=== PATIENT | male | born 1995 | race American Indian/Alaskan Native ===

== ENCOUNTER 2020-09-20 16:37 | Emergency (ER) | payer SELFPAY ==
[2020-09-20 17:07] VITALS: BP 122/79
[2020-09-20 18:33] LABS: Bilirubin,Urine NEG (Negative); Blood,Urine NEG (Negative); Color,Urine Yellow (Yellow); Protein,Urine <15 mg/dL mg/dL (Negative); Urobilinogen,Urine < 2.0 mg/dL (<2.0); WBC,Urine < 1.0 /HPF (0.0-6.0)
--- NOTE | 2020-09-20 18:39 | Emergency Department Report ---
ED Male HPI - General Chief complaint: Urogenital-Male Stated complaint: RT TESTICLE PAIN Time Seen by Provider: 09/20/20 17:43 Source: patient Mode of arrival: Ambulatory Limitations: No Limitations - History of Present Illness Initial comments: pt is a 25 yo male who presents to the ED with c/o right sided testicular pain that began two months ago but worsened in the last few days. he states that the pain is intermittent and worse with palpation. he denies any edema, fever, n/v/d, penile discharge, dysuria, urinary symptoms, abd pain, back pain, hematuria, urinary retention. no pmhx. no allergies to meds. he states he presents today to make sure he "does not have cancer." he states he is sexually active without protection, he states he only has one partner, he states his partner is not having any symptoms, he reports his partner "didnt have anything when she went for a checkup." - Related Data Previous Rx's Medication Instructions Recorded Last Taken Type Doxycycline Hyclate [Doxycycline 100 mg PO BID 7 Days #14 tab 09/20/20 Unknown Rx Hyclate TAB] Allergies Allergy/AdvReac Type Severity Reaction Status Date / Time No Known Allergies Allergy Unverified 09/20/20 17:04 ED Review of Systems ROS: Stated complaint: RT TESTICLE PAIN Other details as noted in HPI Comment: All other systems reviewed and negative ED Past Medical Hx - Past Medical History Previous Medical History?: No - Surgical History Past Surgical History?: No - Social History Smoking Status: Never Smoker Substance Use Type: Marijuana - Medications Home Medications: Home Medications Medication Instructions Recorded Confirmed Last Taken Type Doxycycline Hyclate [Doxycycline 100 mg PO BID 7 Days #14 tab 09/20/20 Unknown Rx Hyclate TAB] ED Physical Exam - General Limitations: No Limitations General appearance: alert, in no apparent distress - Head Head exam: Present: atraumatic, normocephalic - Eye Eye exam: Present: normal appearance - ENT ENT exam: Present: mucous membranes moist - Respiratory Respiratory exam: Present: normal lung sounds bilaterally. Absent: respiratory distress, wheezes, rales, rhonchi, stridor, chest wall tenderness, decreased breath sounds, prolonged expiratory - Cardiovascular Cardiovascular Exam: Present: regular rate, normal rhythm, normal heart sounds. Absent: systolic murmur, diastolic murmur, rubs, gallop - GI/Abdominal GI/Abdominal exam: Present: soft, normal bowel sounds. Absent: distended, tenderness, guarding, rebound, rigid - exam: Present: other (volcanology teacher: georgette, tech, there is ttp to the right testicle and right epididmyal region, no edema, no skin changes, no scrotal edema, no lesions, no palpable masses or hernias, normal testicular lie, normal cremasteric reflex) - Neurological Exam Neurological exam: Present: alert, oriented X3 - Psychiatric Psychiatric exam: Present: normal affect, normal mood - Skin Skin exam: Present: warm, dry, intact ED Course Vital Signs 09/20/20 17:04 Temperature 98.2 F Pulse Rate 65 Respiratory 20 Rate Blood Pressure 122/79 O2 Sat by Pulse 100 Oximetry ED Medical Decision Making - Lab Data Lab Results 09/20/20 Range/Units 18:15 Urine Color Yellow (Yellow) Urine Turbidity Clear (Clear) Urine pH 6.0 (5.0-7.0) Ur Specific [place] 1.019 (1.003-1.030) Urine Protein <15 mg/dl (Negative) mg/dL Urine Glucose (UA) Neg (Negative) mg/dL Urine Ketones Neg (Negative) mg/dL Urine Blood Neg (Negative) Urine Nitrite Neg (Negative) Urine Bilirubin Neg (Negative) Urine Urobilinogen < 2.0 (<2.0) mg/dL Ur Leukocyte Esterase Neg (Negative) Urine WBC (Auto) < 1.0 (0.0-6.0) /HPF Urine RBC (Auto) 1.0 (0.0-6.0) /HPF - Radiology Data Radiology results: report reviewed Ordering Physician: PATRICIA KIM Date of Service: 09/20/20 Procedure(s): US testicular doppler comp Accession Number(s): [id number] cc: PATRICIA KIM EXAMINATION: Testicular/scrotal ultrasound with Doppler, 09/20/2020 CLINICAL INFORMATION: Right-sided testicular pain COMPARISON: None. FINDINGS: Both testicles are normal in size and echogenicity. The right testicle measures 3.0 x 2.1 x 4.2 cm. The left testicle measures 3.7 x 2.0 x 3.2 cm. There may be a trace amount of fluid surrounding the right testicle. Symmetric Doppler flow is demonstrated to both testicles. IMPRESSION: 1. Possible trace amount of free fluid surrounding the right testicle. This is a nonspecific finding but could suggest inflammatory process in this patient with right-sided testicular pain. Signer Name: Sabina Thomas MD Signed: 09/20/2020 7:42 PM Workstation Name: [id number] Transcribed By: OLENA Dictated By: Sabina Thomas MD Electronically Authenticated By: Sabina Thomas MD Signed Date/Time: 09/20/201941 DD/ 38 TD/TT: - Medical Decision Making pt is a 25 yo male who presents to the ED with c/o right sided testicular pain that began two months ago but worsened in the last few days. he states that the pain is intermittent and worse with palpation. he denies any edema, fever, n/v/d, penile discharge, dysuria, urinary symptoms, abd pain, back pain, hematuria, urinary retention. no pmhx. no allergies to meds. he states he presents today to make sure he "does not have cancer." he states he is sexually active without protection, he states he only has one partner, he states his partner is not having any symptoms, he reports his partner "didnt have anything when she went for a checkup." on exam: volcanology teacher: germaine palomino, there is ttp to the right testicle and right epididmyal region, no edema, no skin changes, no scrotal edema, no lesions, no palpable masses or hernias, normal testicular lie, normal cremasteric reflex. UA is WNL. testicular US: 1. Possible trace amount of free fluid surrounding the right testicle. This is a nonspecific finding but could suggest inflammatory process in this patient with right-sided testicular pain. Discussed findings with patient, given that he is a young male and is sexually active without protection, inflammatory process could be potentially secondary to a STD, advised patient that he would need IM antibiotic and to complete a course of p.o. antibiotics, he agreed with plan, advised patient that he will need to have a outpatient full STD panel, he agrees. advised pt Please take medication as prescribed to completion. Follow-up with a primary care doctor or clinic or health department. You need to have a full STD panel. Please have any partner tested and treated as well. Avoid sexual intercourse. Return to emergency room for any new or worsening symptoms. Critical care attestation.: If time is entered above; I have spent that time in minutes in the direct care of this critically ill patient, excluding procedure time. ED Disposition Clinical Impression: Right testicular pain Disposition: DC-01 TO HOME OR SELFCARE Is pt being admited?: No Does the pt Need Aspirin: No Condition: Stable Instructions: Testicular Self-Exam, Safe Sex Additional Instructions: Please take medication as prescribed to completion. Follow-up with a primary care doctor or clinic or health department. You need to have a full STD panel. Please have any partner tested and treated as well. Avoid sexual intercourse. Return to emergency room for any new or worsening symptoms. Prescriptions: Doxycycline Hyclate [Doxycycline Hyclate TAB] 100 mg PO BID 7 Days #14 tab Referrals: PRIMARY CARE, [Primary Care Provider] - 3-5 Days [facility] [Provider Group] - 3-5 Days [facility] [Outside] - 3-5 Days Time of Disposition: 19:49 Print Language: DIVEHI
--- NOTE | 2020-09-20 19:47 | Ultrasound Report ---
EXAMINATION: Testicular/scrotal ultrasound with Doppler, 09/20/2020 CLINICAL INFORMATION: Right-sided testicular pain COMPARISON: None. FINDINGS: Both testicles are normal in size and echogenicity. The right testicle measures 3.0 x 2.1 x 4.2 cm. T he left testicle measures 3.7 x 2.0 x 3.2 cm. There may be a trace amount of fluid surrounding the right testicle. Symmetric Doppler flow is demonstrated to both testicles. IMPRESSION: 1. Possible trace amount of free fluid surrounding the right testicle. This is a nonspecific finding but could suggest inflammatory process in this patient with right-sided testicular pain. Signer Name: Sabina Thomas MD Signed: 09/20/2020 7:42 PM Workstation Name: [email or web address]
[2020-09-20] MEDS ORDERED: LIDOCAINE-MPF (1%) 10 MG/1 ML VIAL 5 ML INFILTRATI ONE (19:48)
[2020-09-21] MEDS ORDERED: LIDOCAINE-MPF (1%) 10 MG/1 ML VIAL 5 ML ONE (10:22)
== END 2020-09-20 19:00 | disposition home or self-care (01) ==
LOC: ED 16:37
DX: N50.811 Right testicular pain (principal); F12.10 Cannabis abuse, uncomplicated; Z79.899 Other long term (current) drug therapy
CPT/HCPCS: 81001; 93975; 96372; J0696